=== PATIENT | male | born 1950 | race Caucasian/White ===

== ENCOUNTER 2023-07-10 16:31 | Emergency (ER) | payer OTHER ==
[~2023-07-10] VITALS: Ht 175.2 cm; Wt 81.6 kg
[2023-07-10] MEDS ORDERED: CYCLOBENZAPRINE5 M3 PO (18:36)
== END 2023-07-10 18:58 | disposition home or self-care (01) ==
LOC: ED 16:31
DX: M54.2 Cervicalgia (principal)